=== PATIENT | female | born 1980 | race Caucasian/White ===

== ENCOUNTER 2020-11-20 05:55 | Inpatient (IN) | payer BC, SELFPAY ==
[~2020-11-20] VITALS: Ht 162.6 cm; Wt 65.8 kg
[2020-11-20] MEDS ORDERED: CEFAZOLIN SOD 1 GM in D5W 50 ML IV ONE (07:00)
[2020-11-20 07:19] LABS: HCG,QUAL RESULT NEGATIVE (NEGATIVE)
[2020-11-20] MEDS ORDERED: KETOROLAC TROMETHAMINE 30 MG VIAL IVP ONE (07:40)
[2020-11-20] MEDS ORDERED: PHENYLEPHRINE HCL 10 MG/ML VIAL (NEOSYNEPHRINE) IV ONE (07:40)
[2020-11-20] MEDS ORDERED: fentaNYL CITRATE/PF 100 MCG/2 ML AMP IVP ONE (07:40)
[2020-11-20] MEDS ORDERED: LR 1,000 ML IV.SOLN IV ONE (07:40)
[2020-11-20] MEDS ORDERED: DEXAMETHASONE SOD PHOSPHATE 4 MG/ML VIAL IVP ONE (07:40)
[2020-11-20] MEDS ORDERED: SEVOFLURANE 15 MIN GAS INH ONE (07:40)
[2020-11-20] MEDS ORDERED: ONDANSETRON HCL 4 MG/2 ML VIAL IVP ONE (07:40)
[2020-11-20] MEDS ORDERED: ROCURONIUM BROMIDE 10 MG/ML (ZEMURON) IV ONE (07:40)
[2020-11-20] MEDS ORDERED: PROPOFOL 200MG/ 20ML VIAL (DIPRIVAN) IV ONE (07:40)
[2020-11-20] MEDS ORDERED: METOCLOPRAMIDE HCL 10 MG/2 ML VIAL IVP ONE (07:40)
[2020-11-20] MEDS ORDERED: MIDAZOLAM HCL 5 MG/5 ML VIAL IVP ONE (07:40)
[2020-11-20] MEDS ORDERED: GLYCOPYRROLATE 0.2 MG/ML VIAL IJ ONE (07:40)
[2020-11-20] MEDS ORDERED: IBUP-2101 PO (08:05)
[2020-11-20] MEDS ORDERED: ACET-2634 PO (08:05)
[2020-11-20] MEDS ORDERED: KETOROLAC TROMETHAMINE 30 MG VIAL IVP PRN (08:45)
[2020-11-20] MEDS ORDERED: NALOXONE HCL 0.4 MG/ML AMP (NARCAN) IVP PRN (08:45)
[2020-11-20] MEDS ORDERED: LR 1,000 ML IV SCH (08:45)
[2020-11-20] MEDS ORDERED: HYDROmorphone 1 MG INJ. 1 MG/ML CARTRIDGE IVP PRN (08:45)
[2020-11-20] MEDS ORDERED: ONDANSETRON HCL 4 MG/2 ML VIAL IVP PRN ×2 (08:45→10:45)
[2020-11-20] MEDS ORDERED: MEPERIDINE HCL/PF 25 MG/ML DISP.SYRIN IVP PRN (08:45)
[2020-11-20] MEDS ORDERED: IBUPROFEN 800 MG TABLET PO PRN (09:30)
[2020-11-20] MEDS ORDERED: HYDROmorphone 1 MG INJ. 1 MG/ML CARTRIDGE ONE (10:03)
[2020-11-20] MEDS ORDERED: SIMETHICONE 80 MG TAB.CHEW PO PRN (10:45)
[2020-11-20] MEDS ORDERED: OXYCODONE/ACETAMINOPHEN 5-325 TABLET PO PRN (10:45)
[2020-11-20 11:15] VITALS: BP_SYST 95
[2020-11-20 15:14] VITALS: BP_SYST 136
[2020-11-20] MEDS: OXYCODONE/ACETAMINOPHEN 5-325 TABLET PO PRN ×2 (15:18→20:14)
[2020-11-20] MEDS: LR 1,000 ML IV SCH ×2 (17:27→18:45)
[2020-11-20 20:00] VITALS: BP_SYST 96
[2020-11-20] MEDS ORDERED: TEMAZEPAM 15 MG CAPSULE PO PRN (21:00)
[2020-11-20] MEDS ORDERED: SENNOSIDES/DOCUSATE SODIUM 1 TAB TABLET(SENOKOT-S) PO PRN ×2 (21:00)
[2020-11-21] MEDS: OXYCODONE/ACETAMINOPHEN 5-325 TABLET PO PRN ×5 (02:07→23:49)
[2020-11-21] MEDS: LR 1,000 ML IV SCH ×2 (02:45→10:45)
[2020-11-21 07:43] LABS: HEMATOCRIT 33.2 % (36-48); HEMOGLOBIN 11.2 g/dL (12.0-16.0)
[2020-11-21 08:00] VITALS: BP_SYST 104
[2020-11-21 12:18] VITALS: BP_SYST 106
[2020-11-21 16:18] VITALS: BP_SYST 121
[2020-11-21 20:00] VITALS: BP_SYST 98
[2020-11-21] MEDS: IBUPROFEN 800 MG TABLET PO PRN (20:20)
[2020-11-22 00:27] VITALS: BP_SYST 96
[2020-11-22] MEDS: IBUPROFEN 800 MG TABLET PO PRN (06:14)
[2020-11-22 08:00] VITALS: BP_SYST 104
[2020-11-22 09:55] VITALS: BP_SYST 104
[2020-11-22] MEDS ORDERED: PERC10 PO (10:36)
[2020-11-22] MEDS ORDERED: IBUP-1970 PO (10:37)
== END 2020-11-22 11:48 | disposition home or self-care (01) | DRG 743 ==
LOC: SMU 05:55 → EDSTATUS 11:02
PROVIDERS: ADMIT Obstetrics & Gynecology; ATTEND Obstetrics & Gynecology
PROC: 0UB90ZZ Excision of Uterus, Open Approach (ICD-10-PCS; principal; 2020-11-20 07:30)
DX: D25.9 Leiomyoma of uterus, unspecified (principal); Z20.822 Contact with and (suspected) exposure to COVID-19
CPT/HCPCS: 36415; 84703; 85018-TC; 86886; 86900; 86901; 87081; 88305; 94010; 94760; J0690; J1100; J1170; J1885; J2250; J2370; J2405; J2704; J2765; J3010; J3490; J7060; J7120